=== PATIENT | male | born 1950 | race Caucasian/White ===

== ENCOUNTER → 2017-07-23 | Outpatient (CLI) | payer OTHER | LOC: CIMAGING 08:19 | PROVIDERS: ATTEND Internal Medicine | DX: I70.0 Atherosclerosis of aorta (principal); Z82.49 Family history of ischemic heart disease and other diseases of the circulatory system ==

== ENCOUNTER → 2018-10-03 | Outpatient (CLI) | payer OTHER | LOC: CIMAGING 12:22 | PROVIDERS: ATTEND Internal Medicine | DX: R60.9 Edema, unspecified (principal) | CPT/HCPCS: 76882-PO ==